=== PATIENT | male | born 1945 | race Caucasian/White ===

== ENCOUNTER 2018-09-15 07:24 | Observation (INO) | payer MEDICARE, BC ==
--- NOTE | 2018-09-15 07:34 | ED ---
Respiratory - HPI Summary HPI Summary: A 73 y/o M brought in by ambulance from home presents to ED with c/o SOB onset two days ago and worsening last night. Per EMS: pt took 2 nitro prior to their arrival and he was given a duo-neb en route. Patient states sx are worse when lying down, and thus, he hasn't been sleeping well. Associated sx: recent weight gain. Denies CP, pedal edema. He is not on a water pill. He was started on Amoxicillin four days ago for a tooth ache. Pert PMHx: HTN, HDL, but no UT. Bypass in 2004. Stent. He denies PMHx: DVT and PE. Previously seen by Dr. Urban , cardio, who recently retired. Per , pt drinks a lot of liquid including beers (3 beers a day.) - History of Current Complaint Stated Complaint: DIFF BREATHING PER EMS Time Seen by Provider: 09/15/18 07:32 Hx Obtained From: Patient, Family/Financial Institution Branch Manager Onset/Duration: Gradual Onset, Lasting Days, Still Present Initial Severity: Moderate Current Severity: Severe Character: Dyspnea at Rest Aggravating Factor(s): Recumbent Position Alleviating Factor(s): Upright Position, Other - pos: nitro - Allergy/Home Medications Allergies/Adverse Reactions: Allergies Allergy/AdvReac Type Severity Reaction Status Date / Time bacitracin Allergy Swelling Verified 09/15/18 07:58 Home Medications: Home Medications Amoxicillin 500 mg PO QID 09/15/18 [History Confirmed 09/15/18] Irbesartan (NF) [Avapro (NF)] 150 mg PO DAILY 09/15/18 [History Confirmed ] PMH/Surg Hx/FS Hx/Imm Hx Previously Healthy: No Endocrine/Hematology History: Denies: Hx Diabetes Cardiovascular History: Reports: Hx Angina, Hx Coronary Artery Disease - TRIPLE BYPASS 2001, Hx Hypercholesterolemia, Hx Hypertension - ON MEDS, Hx Myocardial Infarction, Hx Rheumatic Fever - POSSIBLY A CHILD Denies: Hx Pacemaker/ICD Respiratory History: Denies: Hx Asthma, Hx Chronic Obstructive Pulmonary Disease (COPD) Musculoskeletal History: Reports: Hx Arthritis - KNEES Sensory History: Reports: Hx Cataracts Denies: Hx Contacts or Glasses, Hx Hearing Aid Opthamlomology History: Reports: Hx Cataracts Denies: Hx Contacts or Glasses Psychiatric History: Denies: Hx Panic Disorder - Surgical History Surgery Procedure, Year, and Place: TRIPLE BYPASS, STENT Hx Anesthesia Reactions: No - Family History Known Family History: Positive: Other - neg: anaesthesia reaction - Social History Occupation: Retired Lives: With Family Alcohol Use: Daily Alcohol Amount: 2-3/DAY Substance Use Type: Reports: None Smoking Status (MU): Former Smoker Type: Cigarettes Review of Systems Positive: Other - pos: recent weight gain. Negative: Fever Negative: Chest Pain Positive: Shortness Of Breath Negative: Edema All Other Systems Reviewed And Are Negative: Yes Physical Exam - Summary Physical Exam Summary: GENERAL: Patient is a well-developed and nourished M who is lying comfortable in the stretcher. Patient is not in any acute respiratory distress. HEAD AND FACE: Normocephalic EYES: PERRLA, EOMI x 2. EARS: Hearing grossly intact. MOUTH: Oropharynx within normal limits. NECK: Supple, trachea is midline, no adenopathy, no JVD, no carotid bruit. CHEST: Symmetric, no tenderness at palpation LUNGS: Crackles at bases. CVS: Regular rate and rhythm, S1 and S2 present, no murmurs or gallops appreciated. ABDOMEN: Soft, non-tender. Bowel sounds are normal. No abdominal abnormal pulsations. EXTREMITIES: Full ROM in all major joints, no cyanosis or clubbing. 3+ pitting bilat LE edema. NEURO: Alert and oriented x 3. No acute neurological deficits. Speech is normal and follows commands. SKIN: Dry and warm Triage Information Reviewed: Yes Vital Signs Reviewed: Yes Diagnostics - Laboratory Result Diagrams: 09/15/18 08:11 09/15/18 08:11 Lab Statement: Any lab studies that have been ordered have been reviewed, and results considered in the medical decision making process. - Radiology CXR Radiology Interpretation Completed By: Radiologist Summary of Radiographic Findings: IMPRESSION: 1. DIFFUSE INTERSTITIAL OPACIFICATION INVOLVING THE PREVIOUS CT EXAMINATION. THE DIFFERENTIAL INCLUDES CHRONIC INTERSTITIAL LUNG DISEASE VERSUS AN ACUTE INTERSTITIAL PROCESS INCLUDING EARLY PULMONARY INTERSTITIAL EDEMA. 2. THERE IS PATCHY ATELECTASIS VERSUS CONSOLIDATION OF THE LUNG BASES BILATERALLY. 3. SMALL BILATERAL PLEURAL EFFUSIONS. ED provider has reviewed this report. - EKG 0738 Cardiac Rate: NL - 77 bpm EKG Rhythm: Sinus Rhythm Summary of EKG Findings: Frequent PVCs, LBBB. No recent EKG to compare. Re-Evaluation - Re-Evaluation 1 Re-Evaluation Time: 09:35 Change: Improved Comment: Discussing results and plans for admission with patient. Pt is agreeable to this. Will order nitro for patient's breathing. Disposition - Course Course Of Treatment: Pt is a 73 y/o M brought in by ambulance from home presentsing with SOB onset two days ago and worsening last night. His breathing is worse when in a recumbent position. Denies CP. Workup is remarkable for depressed hemoglobin and hematocrit; low K, Ca and Mg; creatinine: 1.26; glucose : 138; Trop: 0.22; BNP: 1128; and elevated AST, ALT, alk phosphatase. CXR shows "IMPRESSION: 1. DIFFUSE INTERSTITIAL OPACIFICATION INVOLVING THE PREVIOUS CT EXAMINATION. THE DIFFERENTIAL INCLUDES CHRONIC INTERSTITIAL LUNG DISEASE VERSUS AN ACUTE INTERSTITIAL PROCESS INCLUDING EARLY PULMONARY INTERSTITIAL EDEMA. 2. THERE IS PATCHY ATELECTASIS VERSUS CONSOLIDATION OF THE LUNG BASES BILATERALLY. 3. SMALL BILATERAL PLEURAL EFFUSIONS.". The patient will be admitted by Dr. Kent, hospitalist. I discussed results with patient. The patient agrees with this plan. - Diagnoses Provider Diagnoses: New onset of congestive heart failure - Physician Notifications Discussed Care Of Patient With: Joselin Kent - hospitalist Time Discussed With Above Provider: 09:00 Instructed by Provider To: Admit As Inpatient - Critical Care Time Critical Care Time: 30-74 min Discharge - Sign-Out/Discharge Documenting (check all that apply): Patient Departure Patient Received Moderate/Deep Sedation with Procedure: No - Discharge Plan Condition: Stable Disposition: ADMITTED TO [facility] - Billing Disposition and Condition Condition: STABLE Disposition: Admitted to [facility] - Attestation Statements Document Initiated by Alanibe: Yes Documenting Scribe: [facility] Provider For Whom Rylee is Documenting (Include Credential): Dr. Ziggy Marrero MD Scribe Attestation: IMt scribed for Dr. Ziggy Marrero MD on 09/15/18 at 1449. Scribe Documentation Reviewed: Yes Provider Attestation: The documentation as recorded by the [facility] davila accurately reflects the service I personally performed and the decisions made by me, Dr. Ziggy Marrero MD Status of Scribe Document: Viewed
[2018-09-15 08:31] LABS: Activated Partial Thrombo Time 29.5 seconds (26.0-36.3); Hematocrit 38 % (42-52); Hemoglobin 12.6 g/dl (14.0-18.0); INR 0.98 (0.77-1.02); Mean Corpuscular HGB Conc 34 g/dl (31-36); Mean Corpuscular Hemoglobin 31 pg (27-31); Mean Corpuscular Volume 94 fL (80-94); Red Blood Count 4.02 10^6/ul (4.00-5.40); Red Cell Distribution Width 14 % (10.5-15); White Blood Count 5.2 10^3/ul (3.5-10.8)
[2018-09-15 08:40] LABS: ALT 79 U/L (7-52); AST 47 U/L (13-39); Albumin/Globulin Ratio 1.8 (1-3); Alkaline Phosphatase 107 U/L (34-104); Anion Gap 8 mmol/L (2-11); BUN/Creatinine Ratio 13.5 (8-20); Blood Urea Nitrogen 17 mg/dL (6-24); CO2 Carbon Dioxide 26 mmol/L (22-32); Calcium 8.1 mg/dL (8.6-10.3); Chloride 110 mmol/L (101-111); EGFR African American 68.1 (>60); EGFR Non-African American 56.3 (>60); Globulin 2.2 g/dL (2-4); Glucose 138 mg/dL (70-100); Magnesium 1.8 mg/dL (1.9-2.7); Potassium 3.2 mmol/L (3.5-5.0); Sodium 144 mmol/L (135-145); Total Protein 6.2 g/dL (6.4-8.9)
[2018-09-15 08:44] LABS: Troponin I 0.22 ng/mL (<0.04)
[2018-09-15] MEDS ORDERED: Potassium Chlor TAB* 20 MEQ TAB.ER PO ONE ×2 (08:51→20:00)
[2018-09-15] MEDS ORDERED: Furosemide IV* 10 MG/ML VIAL (40 MG) IV ONE (08:52)
[2018-09-15 09:04] LABS: ABS Basophils 0 10^3/ul (0-0.2); ABS Eosinophils 0.1 10^3/ul (0-0.6); ABS Lymphocytes 0.9 10^3/ul (1.0-4.8); ABS Monocytes 0.4 10^3/ul (0-0.8); ABS Neutrophils 3.8 10^3/ul (1.5-7.7); ABS Nucleated RBC 0 10^3/ul; Eosinophil % 2.4 %; Lymphocyte % 17.1 %; Mean Platelet Volume 11.1 fL (7.4-10.4); Nucleated Red Blood Cells % 0.1; Platelet Count 94 10^3/ul (150-450)
[2018-09-15] MEDS ORDERED: Nitroglycerin TAB 0.4 MG* 0.4 MG TAB SL ONE (09:36)
[2018-09-15 10:58] LABS: Troponin I 0.36 ng/mL (<0.04)
[2018-09-15] MEDS ORDERED: Magnesium Sulfate 2 GM IV* 2 GM/50 ML BAG IVPB ONE (11:55)
[2018-09-15] MEDS ORDERED: Acetaminophen TAB* 325 MG PO PRN (12:50)
[2018-09-15] MEDS: Amoxicillin PO (*) 500 MG CAP PO SCH ×3 (14:00→21:52)
[2018-09-15] MEDS: Heparin VIAL(*) 5000 UNITS/ML VIAL (FIVE THOUSAND) SUBCUT SCH ×2 (14:01→21:53)
[2018-09-15 14:28] LABS: Troponin I 0.46 ng/mL (<0.04)
[2018-09-15 14:51] LABS: TSH (Thyroid Stimulating Horm) 4.74 mcIU/mL (0.34-5.60)
--- NOTE | 2018-09-15 16:33 | ECHO ---
Patient: CHRISTOS CHAUDHARI [facility] Rec#: [id number] : 1945 Date: 09/15/2018 Age: 73y Height: 170 cm / 66.9 in Weight: 86 kg / 189.5 lbs Sex: M BSA: 1.98 Room#: [facility] Admit Date#: 09/15/2018 Type: Inpatient Referring: Zulay Saleh Reading: Pantera Gardner MD Caseworker Protective Services: Julia Hernandez RDCS CC: Bailey Bridges MD Transthoracic Echocardiogram Indication: Congestive heart failure BP: 160/90 HR: 57 Rhythm: Bradycardia Findings History: HTN, HLD, CAD, CABG 3 vessel, stent, former smoker. Technical Comments: The study quality is fair. Completed at 1610. Left Ventricle: The left ventricular chamber size is moderately dilated. Mild concentric left ventricular hypertrophy is observed. There is diffuse global hypokinesis of the left ventricle. There is severely decreased left ventricular systolic function. The estimated ejection fraction is 20-25%. Post surgical hypokinesis of the interventricular septum is observed consistent with coronary artery bypass. Abnormal left ventricular diastolic function is observed. The left ventricular diastolic filling pattern is consistent with pseudonormalization. Left Atrium: The left atrium is severely dilated. Right Ventricle: Moderator Band present. The right ventricle is mildly dilated. The right ventricular global systolic function is mildly reduced. Right Atrium: The right atrium is mildly dilated. Aortic Valve: The aortic valve is trileaflet. The aortic valve leaflets are mildly thickened. There is a trace of aortic regurgitation. There is no evidence of aortic stenosis. Mitral Valve: The mitral valve leaflets are mildly thickened. There is mild to moderate mitral regurgitation. There is no evidence of mitral stenosis. Tricuspid Valve: The tricuspid valve leaflets are normal. There is trace to mild tricuspid regurgitation. Unable to estimate the right ventricular systolic pressure. No pulmonary hypertension is noted. There is no tricuspid stenosis. Pulmonic Valve: The pulmonic valve appears normal. There is a trace pulmonic regurgitation. There is no pulmonic stenosis. Pericardium: There is no significant pericardial effusion. Aorta: There is mild dilatation of the ascending aorta. There is no dilatation of the aortic arch. The aortic root is normal in size. Pulmonary Artery: The main pulmonary artery appears normal. Venous: The inferior vena cava appears normal in size. There is a greater than 50% respiratory change in the inferior vena cava dimension. Summary: There was not any prior study for comparison. Conclusions There is diffuse global hypokinesis of the left ventricle. There is severely decreased left ventricular systolic function. The estimated ejection fraction is 20-25%. Post surgical hypokinesis of the interventricular septum is observed consistent with coronary artery bypass. The left atrium is severely dilated. There is a trace of aortic regurgitation. There is no evidence of aortic stenosis. There is mild to moderate mitral regurgitation. There is trace to mild tricuspid regurgitation. Unable to estimate the right ventricular systolic pressure. There is no significant pericardial effusion. Measurements Name Value Normal Range RVIDd (AP) 2D 3.7 cm (0.9 - 2.6) RVDdMajor (2D) 4.5 cm (2.2 - 4.4) RAd ISD 4CH 5.1 cm (3.4 - 4.9) RA (A4C)W 3.9 cm (2.9 - 4.6) IVSd (2D) 1.2 cm (0.6 - 1) LVPWd (2D) 1.1 cm (0.6 - 1) LVIDd (2D) 6.6 cm (3.6 - 5.4) LVIDs (2D) 5.9 cm - LV FS (2D) 10 % (25 - 45) Aortic Annulus 1.9 cm (1.4 - 2.6) Ao root diameter (2D) 3 cm (2.1 - 3.5) Ascending Ao 3.5 cm (2.1 - 3.4) Aortic arch 2 cm (1.8 - 3.4) LA dimension (AP) 2D 4.5 cm (2.3 - 3.8) LAd ISD 4CH 6.4 cm (2.9 - 5.3) LA ISD 4CH W 5.4 cm (2.5 - 4.5) Name Value Normal Range LA ESV BP (A/L) index 50 ml/m2 - Name Value Normal Range MV E-wave Vmax 0.5 m/sec - MV deceleration time 292 msec - MV A-wave Vmax 0.4 m/sec - MV E:A ratio 1.3 ratio - LV septal e' Vmax 0.03 m/sec - LV lateral e' Vmax 0.04 m/sec - LV E:e' septal ratio 16.7 ratio - LV E:e' lateral ratio 12.5 ratio - Name Value Normal Range AV Vmax 1.6 m/sec - AV VTI 32 cm - AV peak gradient 10 mmHg - AV mean gradient 5 mmHg - LVOT Vmax 1.1 m/sec - LVOT VTI 18 cm - LVOT peak gradient 4 mmHg - LVOT mean gradient 2 mmHg - RIC Vmax 0.7 m/sec - Name Value Normal Range IVC diameter 1.6 cm - Name Value Normal Range PV Vmax 1 m/sec - PV peak gradient 4 mmHg -
[2018-09-15] MEDS: Metoprolol Succinate XL TAB* 25 MG PO SCH (17:16)
[2018-09-15 17:58] LABS: Troponin I 0.41 ng/mL (<0.04)
[2018-09-15] MEDS ORDERED: Metoprolol Succinate XL TAB* 50 MG PO SCH (18:00)
[2018-09-15 21:02] LABS: Troponin I 0.33 ng/mL (<0.04)
[2018-09-15 23:48] LABS: Troponin I 0.31 ng/mL (<0.04)
--- NOTE | 2018-09-16 03:57 | HP ---
CC: Dr. Bailey Bridges * HISTORY AND PHYSICAL: DATE OF ADMISSION: 09/15/18 PRIMARY CARE PROVIDER: Dr. Bailey Bridges. ATTENDING PHYSICIAN WHILE IN THE HOSPITAL: Dr. Blas Bell * (dictated by Zulay Saleh NP). CHIEF COMPLAINT: Shortness of breath. HISTORY OF PRESENT ILLNESS: Mr. Hall is a 73-year-old male with a past medical history significant for coronary artery disease, left bundle-branch block, hyperlipidemia, essential hypertension, and chronic ischemic heart disease who presented to the emergency room with complaints of 2 days of increased shortness of breath. The patient also reports that he is unable to lie flat on his bed due to increased shortness of breath x2 days. He states that his shoes were feeling a little bit tighter. He reports that this morning the shortness of breath became more severe, so he presented to the emergency room for further evaluation. The patient reports that at the end of July he weighed approximately 80 kg and when he was weighed again, he weighed 86 kg and was concerned due to the significant amount of weight gain for the past month. He also reports that he recently started walking on the treadmill. He states that he was able to walk on the treadmill and did not develop any chest pain or shortness of breath with ambulation on the treadmill. He reports that he walked 2 miles for the first 3 days in a row without any difficulty. Due to his severe shortness of breath, he presented to the emergency room for further evaluation. While in the emergency room, the patient had a chest x-ray done which was concerning for congestive heart failure. He had an elevated troponin initially at 0.22 and an elevated BNP at 1128. He was also hypokalemic with potassium of 3.2. Due to these findings and findings of a new congestive heart failure, we were asked to see and evaluate him for admission. The patient denies any fever , unintended weight loss. He does report a 10-pound weight gain. Denies any chest pain. He does report swelling to the lower extremities and feet. He does report a chronic cough that he has had for several months. Denies any hemoptysis. He does report some shortness of breath that was worse this morning and was unable to lie flat on the bed. He denies any hematuria, dysuria. Denies any nausea, vomiting, or diarrhea. Denies any abdominal pain. Denies any weakness or sensory loss. Denies any visual complaints, dysphagia , arthralgias, myalgias, rashes, lesions, or open sores. Denies any psychosis or anxiety. PAST MEDICAL HISTORY: Significant for: 1. Coronary artery disease. 2. Left bundle-branch block. 3. Hyperlipidemia. 4. Essential hypertension. 5. Chronic ischemic heart disease. PAST SURGICAL HISTORY: 1. Triple bypass. 2. Cataract surgery. 3. Stent placement. HOME MEDICATIONS: 1. Stockett-3 fatty acid 1 cap p.o. daily. 2. Clopidogrel 75 mg p.o. daily. 3. Metoprolol 25 mg p.o. q.a.m. 4. Atorvastatin 40 mg p.o. b.i.d. 5. Amoxicillin 500 mg p.o. 4 times daily for recent dental infection; he has 2 more days of the antibiotic. 6. Naproxen 220 p.o. daily p.r.n. 7. Colchicine 0.6 mg p.o. daily p.r.n. 8. Allopurinol 300 mg p.o. q.p.m. 9. Avapro 150 mg p.o. daily. 10. Aspirin 81 mg p.o. daily. 11. Isordil 5 mg p.o. b.i.d. ALLERGIES: BACITRACIN. FAMILY HISTORY: Father at the age of 67 from heart disease. No reported history of diabetes or cancer. SOCIAL HISTORY: The patient reports he quit smoking 15 years ago. Prior to that, he smoked 1 to 2 packs a day for 40 years. He does report that he drinks 3 to 5 ounces of liquor nightly and a couple beers daily. He denies any illicit drug use. He is a retired professor. He is . He lives with his . Surrogate decision maker is his . He is a DNR. REVIEW OF SYSTEMS: A 14-point review of systems was completed. All those pertinent positives were mentioned in the HPI. Al the others are negative. PHYSICAL EXAMINATION GENERAL: At this time, Mr. Hall is a 73-year-old male resting on the stretcher in the emergency room. He does not appear to be in any acute distress. VITAL SIGNS: Blood pressure 160/94, temperature 98.5, heart rate 65, respirations 19, O2 saturation on 2 L is 97%. HEENT: Head is atraumatic, normocephalic. Eyes: EOMs are intact. Sclerae anicteric and not pale. Oral mucosa appeared to be moist. NECK: Supple. LUNGS: Clear to auscultation bilaterally. No wheezes, rales, or rhonchi. CARDIAC: S1 and S2, regular rate and rhythm. No murmurs, rubs, or gallops. ABDOMEN: Soft and nontender. Bowel sounds are present x4. EXTREMITIES: Pedal pulses are +2 bilaterally. He is able to move all 4 extremities with 5/5 strength. He does have 1+ pitting edema noted to his lower legs. NEUROLOGIC: He is awake, alert, oriented x3. Speech is clear. Thought process is intact. There are no gross focal deficits. SKIN: Intact. DIAGNOSTIC STUDIES/LABORATORY DATA: WBCs are 5.2, RBCs 4.02, hemoglobin 12.6, hematocrit was 38, platelet count 94. INR 0.98. D-dimer was less than 200. Sodium 144, potassium 3.2, chloride 110, carbon dioxide 26, anion gap was 8, BUN was 17, creatinine 1.26, glucose was 138, lactic acid was 1.1, calcium 8.1, magnesium 1.8. AST was 47, ALT was 79, alkaline phosphatase was 107. Troponin was 0.22, repeat was 0.36. BNP was 1128. TSH 4.74. He had a chest x-ray, radiologist impression: Diffuse interstitial opacification involving the lungs on the previous CT examination. The differential includes chronic interstitial lung disease versus acute interstitial process including early pulmonary interstitial edema. There is patchy atelectasis versus consolidation in the lung bases bilaterally. Small bilateral pleural effusions. He had an electrocardiogram which showed multiple PVCs with a left bundle- branch block, sinus rhythm at a rate of 77. He had T-wave inversions in lead III. The bundle-branch block was present from an EKG compared from 12/31/17. He has a transthoracic echocardiogram that is currently pending. ASSESSMENT AND PLAN: Mr. Hall is a 73-year-old with past medical history significant for coronary artery disease, left bundle-branch block, hyperlipidemia, essential hypertension, chronic ischemic heart disease who presented to the emergency room with acute shortness of breath x2 days. He will be admitted under observation for: 1. Diastolic congestive heart failure. I suspect that this is the cause of his shortness of breath. The patient was given Lasix 40 mg IV in the emergency room. We will continue with IV Lasix. We will place him on strict Is and Os, daily weights. He will have a transthoracic echocardiogram. I have consulted cardiology, who will see the patient. 2. Elevated troponin. I suspect that his elevation in troponin is related to demand ischemia from fluid overload. We will continue with IV Lasix, diuretics and continue to trend his troponin until peak. 3. Coronary artery disease. We will continue him on clopidogrel 75 mg p.o. daily, Isordil 5 mg p.o. b.i.d., aspirin 81 mg p.o. daily, atorvastatin 80 mg daily, and metoprolol 50 mg p.o. daily. 4. Thrombocytopenia. The patient does have a platelet count of 94. We will use caution with DVT prophylaxis. We will continue DVT prophylaxis at this time. If his platelet count should continue to decrease, this will need to be stopped. 5. Hypokalemia. The patient did have a potassium of 3.2. He was given 40 mEq of potassium in the emergency room with a repeat 40 mEq on the floor. We will repeat BMP in the a.m. He had hypomagnesemia; he was given magnesium 2 g in the emergency room. Repeat magnesium level in the morning. 6. Elevated BNP. I suspect this is related to congestive heart failure. He was given Lasix 40 mg IV in the emergency room, repeat Lasix tomorrow morning and will get a repeat BNP with daily weights and strict Is and Os. 7. FEN. He will be placed on a heart-healthy, no caffeine diet. 8. Code status. He is a DNR. 9. DVT prophylaxis. I will place him on heparin subcu. His platelet count needs to be monitored while on heparin as it is at 94. If it should continue to decrease, I would recommend discontinuing heparin DVT prophylaxis. TIME SPENT: Time spent on this admission was 60 minutes, greater than half that time was spent [id number] with the patient obtaining my history and physical, the other half of the time was spent going over my plan of care and implementing my plan of care. I have discussed this with my attending, Dr. Blas Bell; he is in agreement with my plan. ZULAY SALEH, DECALER [id number]/[facility] #: [id number] [facility]isi
[2018-09-16] MEDS: Heparin VIAL(*) 5000 UNITS/ML VIAL (FIVE THOUSAND) SUBCUT SCH ×3 (06:09→21:59)
[2018-09-16 07:12] LABS: Urine Appearance Clear; Urine Bacteria Absent (Absent); Urine Bilirubin Negative (Negative); Urine Blood Negative (Negative); Urine Color Yellow; Urine Glucose Negative (Negative); Urine Ketones Trace (Negative); Urine Nitrite Negative (Negative); Urine Protein 2+(100 mg/dL) (Negative); Urine Red Blood Cell Trace(0-2/hpf) (Absent); Urine Squamous Epithelial Cell Present (Absent); Urine Urobilinogen Negative (Negative); Urine White Blood Cell Trace(0-5/hpf) (Absent)
[2018-09-16 07:52] LABS: BUN/Creatinine Ratio 14.3 (8-20); Calcium 8.3 mg/dL (8.6-10.3); EGFR African American 68.1 (>60); EGFR Non-African American 56.3 (>60); HDL Cholesterol 40.1 mg/dL; Magnesium 2.4 mg/dL (1.9-2.7); Potassium 3.3 mmol/L (3.5-5.0)
[2018-09-16 07:55] LABS: Hematocrit 40 % (42-52); Hemoglobin 13.4 g/dl (14.0-18.0); Mean Corpuscular HGB Conc 34 g/dl (31-36); Mean Corpuscular Hemoglobin 31 pg (27-31); Mean Corpuscular Volume 93 fL (80-94); Mean Platelet Volume 11.7 fL (7.4-10.4); Platelet Count 111 10^3/ul (150-450); Red Blood Count 4.27 10^6/ul (4.00-5.40); Red Cell Distribution Width 15 % (10.5-15)
[2018-09-16 08:31] LABS: ABS Basophils 0 10^3/ul (0-0.2); ABS Eosinophils 0.1 10^3/ul (0-0.6); ABS Lymphocytes 1.2 10^3/ul (1.0-4.8); ABS Monocytes 0.5 10^3/ul (0-0.8); ABS Neutrophils 3.1 10^3/ul (1.5-7.7); ABS Nucleated RBC 0 10^3/ul; Eosinophil % 2.5 %; Lymphocyte % 24.6 %; Nucleated Red Blood Cells % 0.2
[2018-09-16] MEDS: Clopidogrel TAB* 75 MG PO SCH (08:37)
[2018-09-16] MEDS: Isosorbide Dinitrate TAB* 5 MG PO SCH ×2 (08:37→21:59)
[2018-09-16] MEDS: Amoxicillin PO (*) 500 MG CAP PO SCH (08:37)
[2018-09-16] MEDS: Aspirin 81 mg CHEW TAB* 81 MG TAB.CHEW PO SCH (08:37)
[2018-09-16] MEDS: Atorvastatin* 80 MG TAB PO SCH (08:37)
[2018-09-16] MEDS ORDERED: Furosemide IV* 10 MG/ML VIAL (40 MG) IV SCH ×2 (09:00→21:51)
[2018-09-16] MEDS ORDERED: Losartan TAB* 25 MG PO SCH (09:00)
[2018-09-16 09:55] LABS: C Reactive Protein 7.05 mg/L (<8.01)
[2018-09-16] MEDS ORDERED: Potassium Chlor TAB* 20 MEQ TAB.ER PO SCH (10:00)
[2018-09-16] MEDS: Potassium Chlor TAB* 20 MEQ TAB.ER PO SCH ×3 (10:16→17:53)
[2018-09-16] MEDS ORDERED: Losartan TAB* 25 MG PO ONE (12:20)
[2018-09-16] MEDS: Metoprolol Succinate XL TAB* 25 MG PO SCH (17:53)
[2018-09-16] MEDS ORDERED: Potassium Chlor TAB* 20 MEQ TAB.ER PO ONE (22:03)
--- NOTE | 2018-09-17 00:16 | CONS ---
CARDIOLOGY CONSULTATION: DATE OF CONSULT: 09/16/18 REASON FOR CONSULT: Cardiology evaluation in patient with depressed ejection fraction and elevated troponin. CHIEF COMPLAINT: Shortness of breath. HISTORY OF PRESENT ILLNESS: Mr. Hall is a 73-year-old gentleman with known coronary disease. He underwent bypass surgery in 2002 for 3-vessel disease. The patient had some reocclusions in 2010, but at his most recent stress test in 2013, he had no ischemia and an ejection fraction of 51%. The patient did well, travelled to [place] in July. In hindsight realizes he had subtle anginal equivalent of discomfort in the lower left arm, but felt fine until 2 days prior to admission when he describes orthopnea and PND on 09/14/18 and then 09/15/18, he could not breathe well at all and presented to the emergency department. There he was found to be in congestive heart failure. Cardiac catheterization revealed global hypokinesis and an ejection fraction of 20% to 25%. He has been diuresed and breathing is better. Troponins have bumped mildly. The patient denies any change in diet. He cooks for himself and does not think he has increased salt. He said his shoes were a little tighter, but no obvious lower extremity edema. He denies any [id number] medications. No nonsteroidal use and he had been taking all of his usual medications. No recent medication adjustments. PAST MEDICAL HISTORY: The patient has a past medical history of: 1. Three vessel heart disease, CABG [address] Dannie Cantu at [facility] (ROMERO to the LAD, left radial graft to the OM branch, T-graft with free pedicle right internal mammary artery attaching to the radial artery and then to the distal right coronary artery). 2. Rheumatic fever in childhood. 3. Hypertension. 4. Mixed dyslipidemia. 5. Testicular mass, fibroma. 6. Thrombocytopenia and leukopenia. PAST SURGICAL HISTORY: 1. CABG in 2002. 2. Cath in 2010 with intervention. MEDICATIONS: Outpatient medications included: 1. Aspirin 81 mg a day. 2. Isordil. 3. Lipitor 80 mg a day. 4. Toprol-XL 25 mg a day. 5. Plavix 75 mg a day. 6. Irbesartan 150 mg a day. 7. Allopurinol. 8. [place]-3 fish oil. 9. Colchicine p.r.n. Inpatient medications include: 1. Tylenol p.r.n. 2. Aspirin 81 mg a day. 3. Lipitor 80 mg a day. 4. Plavix 75 mg a day. 5. Lasix 40 mg IV daily. 6. Subcutaneous heparin. 7. Isosorbide 5 mg b.i.d. 8. Cozaar 50 mg a day. 9. Toprol-XL 25 mg a day. 10. Potassium replacement today 60 mEq. ALLERGIES: Include BACITRACIN. FAMILY HISTORY: Significant that his father had a history of embolism, dying at 71. SOCIAL HISTORY: [employer] professor. Stopped smoking 2002. . Up to a drink a day. REVIEW OF SYSTEMS: See history of present illness, positive for rather acute orthopnea and PND. Some arm pain, possible anginal equivalent in July. Six to seven pound weight gain in September. No change in functional ability. No recent fevers, chills, sweats, diarrhea, or constipation. All other 14-point review of systems was negative. PHYSICAL EXAM: The patient is 5 feet 7 inches, weighs 184 pounds with a BMI of 29. Vital Signs: On arrival, blood pressure 179/114, pulse of 73, respiratory rate was 18, and temperature 99.1. Currently, the patient's temperature is 98.1 , pulse 98, respiratory rate 16, oxygen saturation on room air 96, and blood pressure 131/71. General Appearance: Older gentleman, smiling, appears pleasant, in no distress, resting; although mild tachypnea with talking. HEENT : Pupils are equal and round. Mucous membranes are moist. Neck: Mild increase in JVP lying. No thyromegaly or lymphadenopathy. Breath sounds had a few rough crackles in the bases, but overall good air movement. No wheezing, no rhonchi. Coronary: S1, S2. Regular without murmurs or rubs. Abdomen: Active bowel sounds, soft, and nontender. I did not appreciate abdominal bruits. Radial pulse on the right was strong. Femoral pulses palpable bilaterally and no bruits. Lower extremities were free of edema with palpable posterior tibial pulses. DIAGNOSTIC STUDIES/LAB DATA: A 12-lead ECG shows sinus rhythm with a left bundle branch block. Occasional PVCs up to 2 on a 10 sec strip. In 2010, his EKG did not show a left bundle branch block. White count 5.0, hemoglobin 13.4, hematocrit 40, platelets 111. INR 0.98, PTT 29. Chemistry: Sodium 143, potassium 3.3, chloride 108, BUN 18, creatinine 1.26 , glucose 107, magnesium 2.4. Troponin #1 of 0.31, peaked at 0.41, and currently 0.22. Total cholesterol 158, triglycerides 166, HDL cholesterol 40, LDL cholesterol 85. BNP 1128. AST elevated at 47, ALT 79, C-reactive protein 7. Echocardiogram done 09/15/18 showed ejection fraction 20% to 25% with mild to moderate mitral insufficiency. Cardiac catheterization 06/27/11 showed: 1. Left main patent. 2. LAD totally occluded mid portion. Critical stenosis seen within the LAD prior to diagonal branch 90% to 95%. 3. Circumflex, nondominant diffuse disease mid portion, 75% proximal occlusion prior to the bypass, collateral flow seen from the circumflex system to the right coronary artery. 4. Right coronary artery totally occluded. 5. Grafts YONY to the OM branch, free pedicle YONY to the right coronary artery , radial artery portion patent with good anastomosis to the OM branch. OM branch 55% to 60% occlusion. The right internal mammary artery free pedicle graft to the YONY was thread like and did not supply any significant flow to the RCA. ROMERO to the LAD widely patent with excellent anastomosis. Intervention was done into the LAD leading to the diagonal branch, but unsuccessful with dissection. Lexiscan Myoview from 05/06/14 showed no inducible ischemia, no infarction, and an ejection fraction of 51%. IMPRESSION AND PLAN: In summary, Mr. Hall is a 73-year-old gentleman with extensive atherosclerotic heart disease, distant bypass surgery, complex intervention in 2010, who had left bundle branch blocks acquired sometime between 2010 and 2013. His ejection fraction with the left bundle branch block in 2013 was 51% by nuclear ventriculogram. The patient now presents with acute congestive heart failure, newly depressed ejection fraction, elevated troponin, and a history concerning for angina several weeks ago when in [place]. The cardiomyopathy could be ischemic and it could be related to the left bundle branch block or a combination. With the patient's elevated troponin and new cardiomyopathy, I have recommended cardiac catheterization with diuresis, he has improved clinically. Discussed with Dr. Seymour, who is amendable to proceeding, but with his ejection fraction so depressed, any intervention would need to be done at an outside medical center. If the cardiomyopathy turns out to be nonischemic or not completely ischemic, he may be a candidate for a biventricular pacer defibrillator; but this will need to be determined. In the interm, recommendations regarding medical management would include adding spironolactone to the patient's loop diuretic. If his ejection fraction remains depressed, he would be a good candidate for Entresto in the future as an outpatient. For his dyslipidemia, I would recommend adding Zetia to get his LDL below 75 and I would recommend increasing fish oil. I would recommend Vacepa 4 g a day for vascular health and getting his triglycerides below 150. His glucose was mildly elevated on admission, may want to consider checking a hemoglobin A1c or glucose tolerance test. If he is in fact an early diabetic, he may benefit from medication in addition to dietary adjustments. Additional recommendations will be made pending the results of his cardiac catheterization and clinical course. I am providing him with additional potassium replacement tonight and he has labs to be drawn in the morning. [id number]/[facility] #: [id number] KENNY
[2018-09-17] MEDS: Heparin VIAL(*) 5000 UNITS/ML VIAL (FIVE THOUSAND) SUBCUT SCH ×3 (05:53→20:24)
[2018-09-17 06:08] LABS: ABS Basophils 0 10^3/ul (0-0.2); ABS Eosinophils 0.2 10^3/ul (0-0.6); ABS Lymphocytes 1.5 10^3/ul (1.0-4.8); ABS Monocytes 0.5 10^3/ul (0-0.8); ABS Neutrophils 2.9 10^3/ul (1.5-7.7); ABS Nucleated RBC 0 10^3/ul; Eosinophil % 3.1 %; Hematocrit 40 % (42-52); Hemoglobin 13.5 g/dl (14.0-18.0); Lymphocyte % 29.8 %; Mean Corpuscular HGB Conc 34 g/dl (31-36); Mean Corpuscular Hemoglobin 32 pg (27-31); Mean Corpuscular Volume 93 fL (80-94); Mean Platelet Volume 11.4 fL (7.4-10.4); Nucleated Red Blood Cells % 0.1; Platelet Count 121 10^3/ul (150-450); Red Blood Count 4.26 10^6/ul (4.00-5.40); Red Cell Distribution Width 14 % (10.5-15); White Blood Count 5.1 10^3/ul (3.5-10.8)
[2018-09-17 06:29] LABS: BUN/Creatinine Ratio 16.7 (8-20); Calcium 8.6 mg/dL (8.6-10.3); EGFR African American 68.1 (>60); EGFR Non-African American 56.3 (>60); Magnesium 2.2 mg/dL (1.9-2.7)
[2018-09-17] MEDS: Clopidogrel TAB* 75 MG PO SCH (07:49)
[2018-09-17] MEDS: Atorvastatin* 80 MG TAB PO SCH (07:49)
[2018-09-17] MEDS: Aspirin 81 mg CHEW TAB* 81 MG TAB.CHEW PO SCH (07:49)
[2018-09-17] MEDS: Isosorbide Dinitrate TAB* 5 MG PO SCH (07:49)
[2018-09-17] MEDS ORDERED: Diazepam TAB(*) 5 MG PO PRN (08:44)
[2018-09-17] MEDS ORDERED: Furosemide IV* 10 MG/ML VIAL (40 MG) IV ONE (09:00)
[2018-09-17] MEDS: NS 0.9% 1000 ML** 1,000 ML IV SCH ×2 (09:15→11:43)
[2018-09-17] MEDS: Losartan TAB* 25 MG PO SCH ×2 (09:46→10:57)
[2018-09-17] MEDS ORDERED: Heparin 2 UNITS/ML IVPREMIX* 3,000 UNIT/1,500 ML BAG IV ONE (09:53)
[2018-09-17] MEDS ORDERED: Lidocaine 1% INJ* 10 MG/ML 30 ML SDV ONE (09:53)
[2018-09-17] MEDS ORDERED: Iodixanol 320 (CONTRAST) 100 ML SDV ONE (09:53)
[2018-09-17] MEDS ORDERED: fentaNYL* 50 MCG/ML 2 ML VIAL (100 MCG VIAL) ONE (09:58)
[2018-09-17] MEDS ORDERED: Midazolam* 1 MG/ML 5 ML VIAL (5 MG) ONE (09:59)
[2018-09-17] MEDS ORDERED: NS 0.9% 1000 ML** 1,000 ML IV SCH (11:00)
[2018-09-17] MEDS ORDERED: Isosorbide Dinitrate TAB* 5 MG PO ONE (11:01)
[2018-09-17] MEDS: Furosemide TAB* 40 MG PO SCH (11:42)
[2018-09-17] MEDS: Potassium Chlor TAB* 20 MEQ TAB.ER PO SCH ×2 (11:42→11:45)
[2018-09-17] MEDS: Spironolactone TAB* 25 MG PO SCH (11:42)
--- NOTE | 2018-09-17 13:26 | CATH ---
CC: Dr. Bailey Bridges CARDIAC CATHETERIZATION REPORT: DATE OF PROCEDURE: 09/17/18 INDICATION FOR PROCEDURE: Asked by Dr. Gibson, the primary stogy maker in the hospital who saw the patient in consult to perform a diagnostic coronary arteriography and graft arteriography in light of a significant change in left ventricular systolic function, now with an EF of 20% to 25% in a patient with left bundle-branch block, assessed for progression in coronary artery disease. PROCEDURE: Coronary arteriography, ROMERO graft arteriography to the left anterior descending artery, free pedicle right radial artery graft to obtuse marginal branch with a free pedicle YONY graft off of the free pedicle radial artery graft to the right coronary artery, left heart catheterization. The patient was interviewed and examined on the floor of the hospital where the risks and benefits were explained. He understood them and wished to proceed. APPROACH UTILIZED: The right femoral artery approach in light of the ROMERO graft needing to be assessed. PREPROCEDURE LABORATORY RESULTS: Hemoglobin and hematocrit of 13.5 and 40 with a platelet count of 121,000. BUN and creatinine of 21 and 1.26. Sodium 141, potassium 4.0, chloride 110, bicarb 25. EQUIPMENT UTILIZED: 1. Right femoral artery sheath was a 5 Burundian Maedleine 11-cm sheath. 2. Diagnostic guidewire was a J-tipped 175-cm length guidewire. 3. Diagnostic coronary catheters were a 5 [place] 4 curve left and a 5 [place] 4 curve right coronary catheter. 4. Catheter utilized for injection of free pedicle radial artery graft - 5 Burundian FR4 curve diagnostic coronary catheter. 5. The ROMERO graft catheter utilized - a 5 Burundian ROMERO graft catheter. 6. Left heart catheterization catheter - a 5 Burundian 145-degree angled pigtail catheter. 7. The closure device utilized was a Mynx closure device 5 Burundian. MEDICATIONS GIVEN DURING THE PROCEDURE: No additional medications were given. RESULTS: HEMODYNAMIC DATA: Left heart catheterization - central aortic pressure was recorded at 160/94 with a mean of 124. Left ventricular pressure 165 with a left ventricular end- diastolic pressure of 32 mmHg. CORONARY ARTERIOGRAPHY: A. Left coronary artery: 1. Left main - widely patent. 2. Left anterior descending artery - the left anterior descending artery traversed supplying a first septal weight yardage checker and was totally occluded in its mid segment after the take off of the diagonal branch. There was a prior stent placed in the left anterior descending artery into the diagonal branch, which had at most a 45% in-stent restenosis. Otherwise, there was mild in-stent restenosis. 3. Circumflex artery - a nondominant vessel with a tapering area in its mid portion with heavy calcification with an 85% narrowing seen in the proximal portion of this bifurcating obtuse marginal branch. Of note, from the diffuse disease with calcium in the mid portion of the circumflex artery, the continuation of circumflex supplied low-lying obtuse marginal branches. There was collateral blood flow seen from both the left anterior descending artery prior to its total occlusion as well as the circumflex artery to the right coronary artery. B. Right coronary artery - totally occluded in its proximal segment. As mentioned earlier, collateral blood flow was seen from septal perforators and the circumflex to the right coronary artery. FREE PEDICLE RADIAL ARTERY GRAFT TO MID OBTUSE MARGINAL BRANCH WITH THREAD-LIKE FREE PEDICLE RIGHT YONY ARTERY TO THE RIGHT CORONARY ARTERY (this was already known to be not filling the right coronary artery with any significant blood flow) - the bypass graft to the obtuse marginal branch was patent throughout the proximal portion, It showed mild 30% narrowing in its mid to distal area with what appeared to be a stenosis of 85% in its distal point of insertion. Competitive flow was seen to some degree from the tanana vessel. ROMERO GRAFT TO LEFT ANTERIOR DESCENDING ARTERY: - widely patent with excellent anastomosis with retrograde filling in the mid segment. Collateral blood flow was seen to the right coronary artery acute marginal branches from the tanana left anterior descending artery. The left anterior descending artery past the point had mild luminal irregularities and tapered in its mid to distal portion. OVERALL ASSESSMENT: Evidence of significant left ventricular decreased compliance with significantly elevated left ventricular end-diastolic pressure as described above. Of note, comparing the current films to the diagnostic films from 2010 and the prior intervention done 1 week later with rotational atherectomy and stenting of the mid LAD into diagonal, the only difference I noticed is the 85% lesion at the insertion point of the free pedicle radial artery graft to the obtuse marginal branch. Clearly that being the only new change, the presence of severe global left ventricular hypokinesis is out of proportion for that new change in coronary artery disease. This information was shared with Dr. Abhijit Mas who was the stogy maker assigned to the patient today in the hospital. We will start the patient on 25 mg of spironolactone, switch his furosemide to 40 mg daily, and give 20 mEq potassium daily. Further management with consideration for transfer to [facility] (the patient's and 's preference) for consideration for biventricular pacemaker defibrillator will be made through Dr. Mas. [id number]/[facility] #: [id number] MTDD
--- NOTE | 2018-09-17 14:33 | DS ---
CC: Dr. Bailey Bridges; Dr. Seymour; Dr. Gibson * DISCHARGE SUMMARY/TRANSFER SUMMARY: DATE OF ADMISSION: 09/15/18 DATE OF DISCHARGE/TRANSFER: 09/17/[address] [facility]. ACCEPTING PHYSICIAN: Dr. Gonzalez. Please refer to the full cardiology consult done by Dr. Gibson, 09/16/18. Please do refer to the full cardiac cath report done by Dr. Seymour, 09/17/18. Please refer to the full history and physical done by Dr. Bailey Enciso, . In summary, the patient is a 73-year-old male patient with known extensive coronary artery disease, status post coronary artery bypass grafting x3 in 2002 at [facility] in [place] with ROMERO to the LAD, left radial graft to the OM branch, T graft with a free pedicle right internal mammary artery attaching to the radial artery and then to the distal right coronary artery. The patient with history of systemic arterial hypertension, mixed dyslipidemia and history in the past of thrombocytopenia and leukopenia. His last cardiac cath was in 2010 and with intervention to the LAD. Please refer to the full separate report as per Dr. Seymour at that time for that. His last nuclear Myoview stress test was done in 2013 and showed no ischemia with preserved left ventricular systolic function, EF 50% to 55%. The patient used to follow up from cardiac standpoint as an outpatient by Dr. Seymour. The patient is active and without limiting symptoms. He has done well, was traveling to [place] in July 2018 for a month to 2 months since then and came back from [place], been having more progressive shortness of breath and he gained close to 20 pounds. He was admitted on 09/15/18 with symptoms and clinical evaluation of congestive heart failure. He had a transthoracic echocardiogram done 09/15/18 and was reported to have severely reduced left ventricular systolic function, appears to be globally with an EF of 20% to 25% with mild-to- moderate mitral insufficiency. Given his acute congestive heart failure and severely reduced left ventricular systolic function, which is new, he underwent a left cardiac cath by Dr. Seymour today. Please refer to full report. In summary, he was found to have disease, appears to be significant to the graft to the OM; however, as per further discussion with Dr. Seymour, out of proportion to the severity of his left ventricular systolic dysfunction. The patient is chest pain free. He does have left bundle-branch block complete. Based on his severe cardiomyopathy, left bundle-branch block and change in his cardiomyopathy, recommendation was for a biventricular ICD. This was discussed with the patient at length as well as with his and they are willing to proceed. I did see him after his cardiac cath and he feels overall well. He gives no symptoms of chest pain. He is comfortable in keeping conversation with me without any significant shortness of breath. His past medical history, past surgical history, it is as outlined in the full H and P as well as consult as per Dr. Bailey Bridges and Dr. Gibson respectively. MEDICATIONS: His medications in the hospital included aspirin 81 mg daily, Lipitor 80 mg daily, Plavix 75 mg daily, Lasix 40 mg daily. He is on heparin 5000 units subcu. He is on Isordil 10 mg p.o. b.i.d., losartan 50 mg daily, metoprolol 25 mg daily, potassium 20 mEq daily and Aldactone 25 mg daily. LABORATORY DATA/DIAGNOSTIC STUDIES: White blood cell 5.1, hemoglobin 13.5, hematocrit 40, platelets 121. His chemistry: Sodium 141, potassium 4, chloride 110, BUN 21, creatinine 1.26. Magnesium 2.2. Troponin 0.41, 0.33, 0.31. BNP 724. Triglyceride 166, cholesterol 158, LDL 85, HDL 40.1. His EKG that is from September 16, normal sinus rhythm, complete left bundle-branch block, heart rate 54 beats per minute. His chest x-ray which was done on 09/15/18, diffuse interstitial finding, chronic interstitial lung disease, possible congestive heart failure, small bilateral pleural effusions. PHYSICAL EXAMINATION: On exam, he is awake, alert and oriented. He is not in acute distress. Vitals are as indicated above. Ears, nose and throat examination benign. Neck supple. JVD is not seen. Chest: Diminished at the bases. Heart: Normal. S1, S2. No added sounds. No gallops, no rubs. There is a grade 2/6 systolic murmur in the apex. Abdomen: Benign as well as positive bowel sounds. Extremities: No edema, no cyanosis, no clubbing. Skin exam is normal. Psych: Normal affect and mood. ASSISTANT CONTROLLER: No focal deficits appreciated. IMPRESSION: In summary, Mr. Hall is a 73-year-old male patient with known history of extensive coronary artery disease and coronary artery bypass grafting at [facility] in 2002 as outlined above. History of preserved left ventricular systolic function last reported by nuclear stress test in 2013. Followed up as an outpatient by Cardiology without any limiting symptoms. Active till about 1 to 2 months. Progressive symptoms, shortness of breath and 20 pound weight gain, now with new finding of severely reduced left ventricular systolic function with an EF of 20% to 25%, complete left bundle- branch block. A cardiac cath done today 09/17/[address] Seymour as in his full detailed report, but it states the cardiac cath findings are out of proportion to the severity of his left ventricular systolic dysfunction. At the present time, it is our recommendations for the patient to proceed with biventricular ICD implantation based on the above. This has been discussed at length with the patient, his who is available at bedside, Dr. Seymour and Dr. Bailey Bridges. The patient and his indicated that they want to go to [facility] as he had his coronary artery bypass grafting done there in 2002. The transfer centers at our [facility] as well as [facility] were contacted and accepted the transfer. I am waiting for the electrophysiology qa consultant, Dr. Gonzalez, to contact me back and discuss this patient further from cardiac standpoint. TIME SPENT: I answered all of their concerns and questions up to their satisfaction. More than half of at least 60 to 65 plus minute was [id number] education, counseling mode, coordinating the patient's care, transfer and discharge summary for this patient. [id number]/[facility] #: [id number] [facility]
[2018-09-17] MEDS: Metoprolol Succinate XL TAB* 25 MG PO SCH (16:39)
[2018-09-17] MEDS: Isosorbide Dinitrate TAB* 10 MG PO SCH (20:25)
[2018-09-17] MEDS ORDERED: Isosorbide Dinitrate TAB* 10 MG PO SCH (21:00)
[2018-09-18] MEDS: Heparin VIAL(*) 5000 UNITS/ML VIAL (FIVE THOUSAND) SUBCUT SCH ×2 (05:59→13:01)
[2018-09-18 06:28] LABS: BUN/Creatinine Ratio 16.3 (8-20); EGFR African American 62.9 (>60); Potassium 3.8 mmol/L (3.5-5.0)
[2018-09-18] MEDS: Furosemide TAB* 40 MG PO SCH (08:37)
[2018-09-18] MEDS: Aspirin 81 mg CHEW TAB* 81 MG TAB.CHEW PO SCH (08:37)
[2018-09-18] MEDS: Losartan TAB* 25 MG PO SCH (08:37)
[2018-09-18] MEDS: Clopidogrel TAB* 75 MG PO SCH (08:37)
[2018-09-18] MEDS: Atorvastatin* 80 MG TAB PO SCH (08:37)
[2018-09-18] MEDS: Potassium Chlor TAB* 20 MEQ TAB.ER PO SCH (08:37)
[2018-09-18] MEDS: Spironolactone TAB* 25 MG PO SCH (08:37)
[2018-09-18] MEDS: Isosorbide Dinitrate TAB* 10 MG PO SCH (08:37)
[2018-09-18 11:20] VITALS: BP 111/67
== END 2018-09-18 13:31 | disposition short-term general hospital (02) ==
LOC: ED 07:24 → MEDTELE 12:50
PROVIDERS: ADMIT Internal Medicine; ATTEND Internal Medicine Geriatric Medicine
DX: R06.02 Shortness of breath (principal); Z79.82 Long term (current) use of aspirin; Z95.5 Presence of coronary angioplasty implant and graft; E78.5 Hyperlipidemia, unspecified; Z86.718 Personal history of other venous thrombosis and embolism; Z87.891 Personal history of nicotine dependence
CPT/HCPCS: 36415; 71046; 80048; 80053; 80061; 81003; 81015; 83605; 83735; 83880; 84443; 84484; 85025; 85060; 85379; 85610; 85730; 86140; 87086; 93005; 93306; 93459; 96365; 96366; 99284; A9270-GY; J1644; J1940; J2250; J3010; J3475